=== PATIENT | female | born 1995 | race Asian ===

== ENCOUNTER 2016-12-18 13:43 | Emergency (ER) | payer BC ==
[2016-12-18 14:25] VITALS: BP 132/63
--- NOTE | 2016-12-18 15:22 | UC ---
Complaint Female HPI - HPI Summary HPI Summary: Pt has noticed vaginal itching and stinging for a couple weeks. Started having a thin vag bleeding yesterday. Was expecting period, but bleeding seem thinner and abnormal. Denies odor, pain, or fever. Sexually active with boyfriend only x 2 years, he has no further sexual partners. He has had recent irritation on the glans of his penis. No hx of STIs or PID. - History Of Current Complaint Chief Complaint: UCGeneralIllness Stated Complaint: VAG ITCHING,DISCH Time Seen by Provider: 12/18/16 14:45 Hx Obtained From: Patient Hx Last Menstrual Period: 12/18/16 ?: No Onset/Duration: Gradual Onset, Lasting Weeks Timing: Constant Severity Initially: Mild Severity Currently: Mild Character: Burning Aggravating Factor(s): [place] - using tampons is painful Associated Signs And Symptoms: Positive: Vaginal Bleeding/Discharge - Allergies/Home Medications Allergies/Adverse Reactions: Allergies Allergy/AdvReac Type Severity Reaction Status Date / Time No Known Allergies Allergy Verified 12/18/16 14:19 Home Medications: Home Medications NK [No Home Medications Reported] 12/18/16 [History Confirmed 12/18/16] PMH/Surg Hx/FS Hx/Imm Hx Previously Healthy: Yes - Surgical History Surgical History: None - Family History Known Family History: Negative: Blood Disorder - Social History Occupation: Student Lives: Alone Alcohol Use: None Substance Use Type: None Smoking Status (MU): Never Smoked Tobacco Review of Systems Constitutional: Negative Skin: Negative Eyes: Negative ENT: Negative Respiratory: Negative Cardiovascular: Negative Gastrointestinal: Negative Genitourinary: Other - vulvar itchng and burning Motor: Negative Neurovascular: Negative Musculoskeletal: Negative Neurological: Negative Psychological: Negative All Other Systems Reviewed And Are Negative: Yes Physical Exam Triage Information Reviewed: Yes Appearance: Well-Appearing, No Pain Distress, Well-Nourished Vital Signs: Initial Vital Signs Temp 98.8 F 12/18/16 14:20 Pulse 50 12/18/16 14:20 Resp 16 12/18/16 14:20 BP 132/63 12/18/16 14:20 Pulse Ox 100 12/18/16 14:20 Vital Signs Reviewed: Yes Eye Exam: Normal Eyes: Positive: Conjunctiva Clear ENT Exam: Normal ENT: Positive: Normal ENT inspection, Hearing grossly normal, Pharynx normal, TMs normal Dental Exam: Normal Neck exam: Normal Neck: Positive: Supple, Nontender Respiratory Exam: Normal Respiratory: Positive: Chest non-tender, Lungs clear, Normal breath sounds, No respiratory distress, No accessory muscle use Cardiovascular Exam: Normal Cardiovascular: Positive: RRR, No Murmur Abdomen Description: Positive: Soft Musculoskeletal Exam: Normal Neurological Exam: Normal Neurological: Positive: Alert Psychological Exam: Normal Skin Exam: Normal - Additional Comments external precision assembler bench exam unremarkable, no lesions swelling or masses. Vaginal swab obtained for affirm without full pelvic, per pt preference. Complaint Female Dx - Differential Dx/Diagnosis Provider Diagnoses: vaginitis. elevated blood pressure due to discomfort Discharge - Discharge Plan Condition: Stable Disposition: HOME Patient Education Materials: Vaginitis (ED) Referrals: [facility] [place] [facility]IAN REFERRAL [Outside] Additional Instructions: I am not prescribing medicine today. I am sending testing for vaginal yeast, bacterial vaginosis, gonorrhea, and chlamydia. If one of these tests is positive , we will call you and arrange for treatment. Please see a primary care provider if your symptoms persist or worsen.
== END 2016-12-18 15:49 | disposition home or self-care (01) ==
LOC: UCEAST 13:43
DX: N76.0 Acute vaginitis (principal); R03.0 Elevated blood-pressure reading, without diagnosis of hypertension
CPT/HCPCS: 81003; 87480; 87510; 99201; G0463

== ENCOUNTER 2017-03-31 08:20 | Emergency (ER) | payer SELFPAY ==
[2017-03-31 08:35] VITALS: BP 108/77
--- NOTE | 2017-03-31 09:26 | UC ---
Complaint Female HPI - HPI Summary HPI Summary: TWO DAYS OF URINARY PAIN FREQUENCY AND PRESSURE. NO NEW SEXUAL PARTNERS. LMP LAST WEEK. NO FEVER. NO ABDOMINAL PAIN. NO BACK PAIN. HEMATURIA AT TIME OF CLINICAL VISIT. - History Of Current Complaint Chief Complaint: UCGU Stated Complaint: INABILITY TO URINATE Time Seen by Provider: 03/31/17 08:30 Hx Obtained From: Patient Hx Last Menstrual Period: 03/24/17 Onset/Duration: Gradual Onset, Lasting Hours Timing: Intermittent Severity Initially: Mild Severity Currently: Moderate Character: Dull, Burning Aggravating Factor(s): Urination Associated Signs And Symptoms: Negative: Fever, Back Pain, Vaginal Bleeding/ Discharge, Vaginal Discharge, Nausea, Vomiting(# Of Episodes =) - Risk Factors Ectopic Risk Factor: Negative Ovarian Torsion Risk Factor: Negative - Allergies/Home Medications Allergies/Adverse Reactions: Allergies Allergy/AdvReac Type Severity Reaction Status Date / Time No Known Allergies Allergy Verified 03/31/17 08:30 PMH/Surg Hx/FS Hx/Imm Hx Previously Healthy: Yes - Surgical History Surgical History: None - Family History Known Family History: Negative: Renal Disease, Blood Disorder - Social History Occupation: Student Lives: With Family Alcohol Use: None Substance Use Type: None Smoking Status (MU): Never Smoked Tobacco Review of Systems Constitutional: Negative Skin: Negative Eyes: Negative ENT: Negative Respiratory: Negative Cardiovascular: Negative Gastrointestinal: Negative Genitourinary: Dysuria, Hematuria, Frequency, Urgency Motor: Negative Neurovascular: Negative Musculoskeletal: Negative Neurological: Negative Psychological: Negative All Other Systems Reviewed And Are Negative: Yes Physical Exam Triage Information Reviewed: Yes Appearance: Well-Appearing, No Pain Distress, Well-Nourished, Thin Vital Signs: Initial Vital Signs Temp 97.7 F 03/31/17 08:31 Pulse 58 03/31/17 08:31 Resp 16 03/31/17 08:31 BP 108/77 03/31/17 08:31 Pulse Ox 100 03/31/17 08:31 Vital Signs Reviewed: Yes Eye Exam: Normal ENT Exam: Normal ENT: Positive: Normal ENT inspection Dental Exam: Normal Neck exam: Normal Neck: Positive: Supple, Nontender, No Lymphadenopathy Respiratory Exam: Normal Respiratory: Positive: Chest non-tender, Lungs clear, Normal breath sounds, No respiratory distress, No accessory muscle use Cardiovascular Exam: Normal Cardiovascular: Positive: RRR, No Murmur, Pulses Normal, Brisk Capillary Refill Abdominal Exam: Normal Abdomen Description: Positive: Nontender, No Organomegaly, Soft. Negative: CVA Tenderness (R), CVA Tenderness (L) Musculoskeletal Exam: Normal Neurological Exam: Normal Psychological Exam: Normal Skin Exam: Normal Complaint Female Dx - Differential Dx/Diagnosis Differential Diagnosis/HQI/PQRI: Ectopic, Ovarian Cyst, Urinary Tract Infection Provider Diagnoses: URINARY TRACT INFECTION Discharge - Discharge Plan Condition: Stable Disposition: HOME Prescriptions: Phenazopyridine TAB* [Pyridium 100 mg TAB*] 100 mg PO TID PRN #15 tab PRN Reason: Pain Sulfamethox/Trimethoprim DS* [Bactrim DS 800/160 TAB*] 1 tab PO BID #10 tab Patient Education Materials: Urinary Tract Infection in Women (ED) Referrals: [facility] [place] PH[facility]IAN REFERRAL [Outside] [facility] [Outside] No Primary Care Phys,NOPCP [Primary Care Provider] -
== END 2017-03-31 09:27 | disposition home or self-care (01) ==
LOC: UCEAST 08:20
DX: N39.0 Urinary tract infection, site not specified (principal); R31.9 Hematuria, unspecified; Z32.02 Encounter for pregnancy test, result negative
CPT/HCPCS: 81003; 84702; 87086; 99212; G0463